=== PATIENT | female | born 1970 | race Caucasian/White ===

== ENCOUNTER 2018-02-12 15:19 | Emergency (ER) | payer MEDICARE, BC ==
[2018-02-12 15:45] VITALS: TEMP 98
[2018-02-12 16:03] LABS: HEMATOCRIT 44 % (35-47); HEMOGLOBIN 14.9 gm/dl (12.0-15.5); MEAN CORPUSCULAR HEMOGLOBIN 30.7 pg (27.0-32.0); MEAN CORPUSCULAR HGB CONC 33.7 gm/dl (32.0-36.0); MEAN CORPUSCULAR VOLUME 91 fL (81-99)
[2018-02-12 16:15] LABS: ALBUMIN 3.4 gm/dl (3.4-5.0); ALKALINE PHOSPHATASE 50 IU/L (46-116); ALT 24 IU/L (14-63); AMYLASE 29 IU/L (25-115); AST 14 IU/L (15-37); BILIRUBIN,TOTAL 0.4 mg/dl (0.2-1.0); BLOOD UREA NITROGEN 13 mg/dl (7-18); CALCIUM 8.4 mg/dl (8.5-10.1); CARBON DIOXIDE 24.2 mEq/L (21-32); CHLORIDE 105 mMol/L (98-107); GLUCOSE 81 mg/dl (74-106); POTASSIUM 3.3 mMol/L (3.5-5.1); TOTAL PROTEIN 7.5 gm/dl (6.4-8.2)
[2018-02-12 16:20] LABS: BAND NEUTROPHILS % (MANUAL) 0 %; BASOPHILS % (MANUAL) 0 % (0-3); EOSINOPHILS % (MANUAL) 2 % (0-9); LYMPHOCYTES % (MANUAL) 24 % (10-50); MONOCYTES % (MANUAL) 5 % (0-12); NEUTROPHILS % (MANUAL) 69 % (37-80); NORMAL RBCS PRESENT
[2018-02-12 16:22] LABS: SODIUM 138 mMol/L (136-145)
[2018-02-12 16:29] LABS: TROP I < 0.017 ng/ml (0.000-0.056)
[2018-02-12] MEDS ORDERED: ALBUTEROL/IPRATROPIUM 1 VIAL SOL INH ONE (16:32)
[2018-02-12] MEDS ORDERED: ALBUTEROL/IPRATROPIUM 1 VIAL SOL ONE (16:33)
[2018-02-12 16:43] VITALS: RESP 22
[2018-02-12 18:23] VITALS: BP 122/85; PULSE 80; O2SAT 98
== END 2018-02-12 18:20 | disposition home or self-care (01) | DRG 204 ==
LOC: ED 15:19
DX: R06.00 Dyspnea, unspecified (principal)
CPT/HCPCS: 36415; 71260; 80053; 82150; 83880; 84484; 85007; 85027; 93005; 99282; 99283; Q9967

== ENCOUNTER 2018-07-16 22:40 | Emergency (ER) | payer MEDICARE, BC ==
[2018-07-16 23:16] VITALS: BP 124/77; PULSE 61; RESP 18; TEMP 96.4; O2SAT 99
== END 2018-07-17 00:10 | disposition home or self-care (01) | DRG 950 ==
LOC: ED 22:40
DX: T81.89XD Other complications of procedures, not elsewhere classified, subsequent encounter (principal); Z98.890 Other specified postprocedural states
CPT/HCPCS: 87070; 87077; 87186; 99282; A6402